=== PATIENT | female | born 1940 | race Caucasian/White ===

== ENCOUNTER 2022-03-03 18:41 | Emergency (ER) | payer MEDICARE, OTHER | END 2022-03-03 23:58 | disposition home or self-care (01) | LOC: FER 18:41 | DX: S39.012A Strain of muscle, fascia and tendon of lower back, initial encounter (principal); S20.212A Contusion of left front wall of thorax, initial encounter; S80.02XA Contusion of left knee, initial encounter; I10 Essential (primary) hypertension; Z79.899 Other long term (current) drug therapy; Z79.82 Long term (current) use of aspirin; Z88.4 Allergy status to anesthetic agent; W18.30XA Fall on same level, unspecified, initial encounter; Y93.H9 Activity, other involving exterior property and land maintenance, building and construction; Y92.007 Garden or yard of unspecified non-institutional (private) residence as the place of occurrence of the external cause | CPT/HCPCS: 71250; 72131; 73564 ==